=== PATIENT | female | born 1975 | race Caucasian/White ===

== ENCOUNTER 2021-07-14 14:06 | Outpatient (CLI) | payer MEDICAID, SELFPAY ==
--- NOTE | 2021-07-14 14:17 | MM_ITS ---
WS: [id number] BILATERAL DIGITAL SCREENING MAMMOGRAPHY WITH CAD CLINICAL INFORMATION: SCREENING HISTORY: Screening mammogram. No current complaints. COMPARISON: None. TECHNIQUE: Bilateral CC and MLO views. FINDINGS: The breasts are composed of heterogeneous fibroglandular density tissue, which can limit the detectio n of small underlying mass lesions. No suspicious mass, asymmetry, calcifications, or architectural d istortion. No evidence of malignancy. MM/[place] [id number] IMPRESSION: BI-RADS: 1-Negative FOLLOW UP: 1 Year Follow-up Recommend return to annual screening mammography.
== END 2021-07-14 14:07 | disposition home or self-care (01) ==
LOC: RADSHAW 14:12
PROVIDERS: Family Provider Family Medicine; PCP Family Medicine; Visit Provider Physician Assistant
DX: Z12.31 Encounter for screening mammogram for malignant neoplasm of breast (principal)
CPT/HCPCS: 77067

== ENCOUNTER 2022-08-09 14:58 | Outpatient (CLI) | payer MEDICAID, SELFPAY ==
--- NOTE | 2022-08-09 15:07 | MM_ITS ---
WS: [id number] Bilateral screening 3D tomosynthesis digital mammogram, 08/09/2022 Clinical Data: SCREENING Comparison: 07/14/2021 Findings: The breast parenchymal pattern shows heterogeneous density. No spiculated masses or clustered calcifi cations are seen. There are no secondary signs of carcinoma. MM/[place] [id number] Impression: 1. Negative bilateral mammogram unchanged. 2. Recommend annual screening mammograms. BIRADS: 1-Negative FOLLOW UP: 1 Year Follow-up The CAD construction checker was used.
== END 2022-08-09 14:59 | disposition home or self-care (01) ==
PROVIDERS: PCP Physician Assistant; Visit Provider Physician Assistant
DX: Z12.31 Encounter for screening mammogram for malignant neoplasm of breast (principal)
CPT/HCPCS: 77063; 77067

== ENCOUNTER 2025-02-26 15:13 | Outpatient (CLI) | payer OTHER, SELFPAY ==
--- NOTE | 2025-02-26 15:19 | MM_ITS ---
WS: [id number] BILATERAL 3D TOMOSYNTHESIS DIGITAL SCREENING MAMMOGRAPHY WITH CAD CLINICAL INFORMATION: ANNUAL SCREEN HISTORY: Screening mammogram. No current complaints. COMPARISON: 2022 TECHNIQUE: Bilateral CC and MLO views. FINDINGS: The breasts are composed of heterogeneous fibroglandular density tissue, which can limit the detection of small underlying mass lesions. Slightly spiculated small asymmetric density outer RIGHT breast posterior depth measuring 4 mm near the 9 o'clock position. Recommend further evaluation with RIGHT breast diagnostic mammography and ultrasound if persistent. LEFT breast is unremarkable MM/MM [facility] tomosynthesis [id number] IMPRESSION: DENSITY: The breasts are heterogeneously dense, which may obscure small masses. BI-RADS: 0 - Incomplete: Need additional imaging evaluation FOLLOW UP: Need Additional Imaging Recommend further evaluation with RIGHT breast diagnostic mammography and ultra sound if persistent.
== END 2025-02-26 15:14 | disposition home or self-care (01) ==
LOC: RAD 15:14
PROVIDERS: PCP Physician Assistant; Visit Provider Advanced Practice Midwife
DX: Z12.31 Encounter for screening mammogram for malignant neoplasm of breast (principal); R92.333 Mammographic heterogeneous density, bilateral breasts; R92.323 Mammographic fibroglandular density, bilateral breasts; N64.89 Other specified disorders of breast
CPT/HCPCS: 77063; 77067

== ENCOUNTER 2025-03-18 14:33 | Outpatient (CLI) | payer OTHER, SELFPAY ==
--- NOTE | 2025-03-18 14:57 | MM_ITS ---
WS: [id number] RIGHT 3D TOMOSYNTHESIS DIGITAL MAMMOGRAPHY WITH CAD CLINICAL INFORMATION: ABNORMAL MAMMO HISTORY: Additional views COMPARISON: 2024 TECHNIQUE: 3 views of the right breast were obtained. FINDINGS: The right breast is composed of heterogeneous fibroglandular density tissue, which can limit the detection of small underlying mass lesions. Previously described slightly spiculated small asymmetric density outer RIGHT breast is less distinct today on the spot compression views. Ultrasound described below. ULTRASOUND BREAST RIGHT TECHNIQUE: Ultrasound right breast focused area of concern. CLINICAL INFORMATION: ABNORMAL MAMMO FINDINGS: Ultrasound RIGHT breast at the 9 o'clock position. Dense underlying parenchymal tissue. Tiny incidental cyst measuring 7 mm 9 o'clock position 2 cm from the nipple. Area of dense parenchymal tissue with fibrocystic change. No suspicious abnormalities to target for biopsy. Recommend return to annual screening mammography . MM/MM diag RT tomosynthesis [id number] IMPRESSION: DENSITY: The breasts are heterogeneously dense, which may obscure small masses. BI-RADS: 2 - Benign FOLLOW UP: 1 Year Follow-up Recommend return to annual screening mammography.
== END 2025-03-18 14:34 | disposition home or self-care (01) ==
LOC: RAD 14:36
PROVIDERS: PCP Physician Assistant; Visit Provider Advanced Practice Midwife
DX: Z12.31 Encounter for screening mammogram for malignant neoplasm of breast (principal); R92.333 Mammographic heterogeneous density, bilateral breasts; R92.8 Other abnormal and inconclusive findings on diagnostic imaging of breast
CPT/HCPCS: 76642; 77061; G0279

== ENCOUNTER 2025-05-24 06:45 | Emergency (ER) | payer SELFPAY ==
--- OUTSIDE RECORDS SUMMARY | 2025-05-24 06:50 | XMS_ITS | Data Portability ---
Author Organization [place] [facility] Faith Powers [facility] Address [address] [address] Assessment No assessment recorded. Plan of Treatment Reminders Order Date Submit Date Provider Last Modified By Organization Details Last Modified Time Details Appointments None recorded. Lab lipid panel, blood 2023 024 [email or web address] 1 [facility], [address] [place] [address], [address] [place], [address], 4 08:32:55 CMP, serum or plasma 2023 024 [email or web address] 1 [facility], [address], [address], 4 08:32:54 CBC [address] [facility], [address], [address], 4 09:16:13 TSH, serum or plasma 2023 024 ZENAIDA [facility], [address] [place] [address], [address] [place], [address], 4 13:19:55 T4, free, serum 2023 024 [email or web address] 1 [facility], [address] [place] [address], [address] C, [place], [address], 4 09:16:13 Referral general surgeon referral 2023 024 [email or web address] 2 Not available 4 16:35:59 Procedures None recorded. Surgeries None recorded. Imaging None recorded. Medication Orders azithromyci n 250 mg tablet 2023 024 ZENAIDA Not available 4 12:31:19 norgestimat e 0.25 mg-ethinyl estradiol 0.035 mg tablet 2023 024 ZENAIDA Not available 4 16:21:53 Toviaz 4 mg tablet,exte nded release 2023 024 ZENAIDA Not available 16:21:54 Patient TargetsNo targets recorded. Patient InstructionsNo instructions recorded. Reason for Referral General Surgeon Referral for Screening colonoscopy Referring Physician: Dayna Lawson, Family Medicine, Encounter Date: 07/17/2023 Results Created Date Observation Date Name Description Value Unit Range Abnormal Flag Note LastModifiedBy Organization Detail LastModifiedTime 01/29/20 24 01/29/2024 CBC WBC 7.6 x10 4.0-10 .5 Not Available [facility] [address] [facility] 1, [place], [address], 01/29/2024 09:20:40 01/29/20 24 01/29/2024 CBC RBC 4.60 x10 3.50-5 .50 Not Available [facility] [address] [facility] [address], [place], [address], 01/29/2024 09:20:40 01/29/20 24 01/29/2024 CBC HGB 12.5 g/dL 12.0-1 6.0 Not Available [facility] [address] [facility] [address], [place], [address], 01/29/2024 09:20:40 01/29/20 24 01/29/2024 CBC HCT 37.4 % 37.0-4 7.0 Not Available [facility] [address] [facility] 1, [place], [address], 01/29/2024 09:20:40 01/29/20 24 01/29/2024 CBC MCV 81.4 fL 80.0-9 9.9 Not Available [facility] [address] [facility] 1, [place], [address], 01/29/2024 09:20:40 01/29/20 24 01/29/2024 CBC MCH 27.1 pg 27.0-3 2.0 Not Available [facility] [address] [facility] 1, [place], [address], 01/29/2024 09:20:40 01/29/2001/29/2024 CBC MCHC 33.3 g/dL 32.0-3 6.0 Not Available [facility] [address] [facility] 1, [place], [address], 01/29/2024 09:20:40 01/29/2001/29/2024 CBC RDW 15.0 % 11.5-1 4.5 high Not Available [facility] [address] [facility] 1, [place], [address], 01/29/2024 09:20:40 01/29/2001/29/2024 CBC plt 241.4 x10 140.0- 451.0 Not Available [facility] [address] [facility] 1, [place], [address], 01/29/2024 09:20:40 01/29/20 24 01/29/2024 CBC lymphocytes % 24.2 % 20.0-5 0.0 Not Available [facility] [address] [facility] 1, [place], [address], 01/29/2024 09:20:40 01/29/20 24 01/29/2024 CBC granulcytes % 64.5 % 30.0-7 0.0 Not Available [facility] [address] [facility] 1, [place], [address], 01/29/2024 09:20:40 01/29/20 24 01/29/2024 CBC monocytes % 7.1 % 2.0-16 .0 Not Available [facility] [address] [facility], [place], [address], 01/29/2024 09:20:40 01/29/20 24 01/29/2024 CBC granulcytes# 4.9 x10 Not Trinidad ilable [facility] [address] [facility] 1, [place], [address], 01/29/2024 09:20:40 01/29/20 24 01/29/2024 CBC lymphocytes # 1.9 x10 Not Available [facility] [address] [address], [place], [address], 01/29/2024 09:20:40 01/29/20 24 01/29/2024 CBC monocytes # 0.5 x10 Not Avai lable [facility] [address] [address], [place], [address], 01/29/2024 09:20:40 01/29/20 24 01/30/2024 LIPID PANEL , STAND KIMBERLY cholesterol, total 192 mg/dL <200 normal Not Available [facility] [address] [place], [address], 01/30/2024 13:19:54 01/29/20 24 01/30/2024 LIPID PANEL , STAND KIMBERLY HDL cholesterol 61 mg/dL > or = 50 normal Not Available [facility] [address] [place], [address], 01/30/2024 13:19:54 01/29/20 24 01/30/2024 LIPID PANEL , STAND KIMBERLY triglyceride s 156 mg/dL <150 high Not Available [address], [address], 01/30/2024 13:19:54 01/29/20 24 01/30/2024 LIPID PANEL , STAND KIMBERLY LDL-choleste rol 104 mg/dL _(jayce c) high Refer ence range : <100 Marky able range <100 mg/dL for prima ry preve ntion ; <70 mg/dL for patie nts with CHD or diabe tic patie nts with > or = 2 CHD risk facto rs. LDL-C is now calcu lated using the Sarah n-Hop kins calcu latcalvin n, which is a valid ated novel metho d provi ding danny r accur acy than the Fried misty equat ion in the estim ation of LDL-C . Sarah frazier SS et al. NAM. 2013; 310(1 9): 2061- 2068 (http ://ed ucati on.Qu linusCivitas Learning. com/f aq/FA Q164) Not Available [address], [address], 01/30/2024 13:19:54 01/29/20 24 01/30/2024 LIPID PANEL , STAND KIMBERLY chol/HDLC ratio 3.1 (calc ) <5.0 normal Not Available [address], [address], 01/30/2024 13:19:54 01/29/20 24 01/30/2024 LIPID PANEL , STAND KIMBERLY non HDL cholesterol 131 mg/dL _(jayce c) <130 high For patie nts with diabe luci plus 1 major ASCVD risk facto r, treat ing to a non-H DL-C goal of <100 mg/dL (LDL- C of <70 mg/dL ) is consi dered a thera peuti c optio n. Not Available [facility] [id number] [place] [address] [place], [address], 01/30/2024 13:19:54 01/29/20 24 01/30/2024 COMPR EHENS JOSE METAB OLIC PANEL glucose 96 mg/dL 65-99 normal Fasti ng refer ence inter dennis Not Available [address], [address], 01/30/2024 13:19:54 01/29/20 24 01/30/2024 COMPR EHENS JOSE METAB OLIC PANEL urea nitrogen (BUN) 5 mg/dL 7-25 low Not Available [address], [address], 01/30/2024 13:19:54 01/29/20 24 01/30/2024 COMPR EHENS JOSE METAB OLIC PANEL creatinine 0.75 mg/dL 0.50-0 .99 normal Not Available [address], [address], 01/30/2024 13:19:54 01/29/20 24 01/30/2024 COMPR EHENS JOSE METAB OLIC PANEL eGFR 99 mL/mi n/1.7 3m2 > or = 60 normal Not Available [address], [address], 01/30/2024 13:19:54 01/29/20 24 01/30/2024 COMPR EHENS JOSE METAB OLIC PANEL BUN/creatini ne ratio 7 (calc ) 6-22 normal Not Available [address], [address], 01/30/2024 13:19:54 01/29/20 24 01/30/2024 COMPR EHENS JOSE METAB OLIC PANEL sodium 139 mmol/ L 135-14 6 normal Not Available [address], [address], 01/30/2024 13:19:54 01/29/20 24 01/30/2024 COMPR EHENS JOSE METAB OLIC PANEL potassium 4.4 mmol/ L 3.5-5. 3 normal Not Available [address], [address], 01/30/2024 13:19:54 01/29/20 24 01/30/2024 COMPR EHENS JOSE METAB OLIC PANEL chloride 100 mmol/ L 98-110 normal Not Available [address], [address], 01/30/2024 13:19:54 01/29/20 24 01/30/2024 COMPR EHENS JOSE METAB OLIC PANEL carbon dioxide 31 mmol/ L 20-32 normal Not Available [address], [address], 01/30/2024 13:19:54 01/29/20 24 01/30/2024 COMPR EHENS JOSE METAB OLIC PANEL calcium 9.3 mg/dL 8.6-10 .2 normal Not Available [address], [address], 01/30/2024 13:19:54 01/29/20 24 01/30/2024 COMPR EHENS JOSE METAB OLIC PANEL protein, total 7.4 g/dL 6.1-8. 1 normal Not Available [address], [address], 01/30/2024 13:19:54 01/29/20 24 01/30/2024 COMPR EHENS JOSE METAB OLIC PANEL albumin 3.9 g/dL 3.6-5. 1 normal Not Available [address], [address], 01/30/2024 13:19:54 01/29/20 24 01/30/2024 COMPR EHENS JOSE METAB OLIC PANEL globulin 3.5 g/dL_ (calc ) 1.9-3. 7 normal Not Available [facility] [address], [address], 01/30/2024 13:19:54 01/29/20 24 01/30/2024 COMPR EHENS JOSE METAB OLIC PANEL albumin/glob ulin ratio 1.1 (calc ) 1.0-2. 5 normal Not Available [address], [address], 01/30/2024 13:19:54 01/29/20 24 01/30/2024 COMPR EHENS JOSE METAB OLIC PANEL bilirubin, total 0.3 mg/dL 0.2-1. 2 normal Not Available [address], [address], 01/30/2024 13:19:54 01/29/20 24 01/30/2024 COMPR EHENS JOSE METAB OLIC PANEL alkaline phosphatase 98 U/L 31-125 normal Not Available [address], [address], 01/30/2024 13:19:54 01/29/20 24 01/30/2024 COMPR EHENS JOSE METAB OLIC PANEL AST 15 U/L 10-35 normal Not Available [address], [address], 01/30/2024 13:19:54 01/29/20 24 01/30/2024 COMPR EHENS JOSE METAB OLIC PANEL ALT 15 U/L 6-29 normal Not Available [address], [address], 01/30/2024 13:19:54 01/29/20 24 01/30/2024 T4, FREE T4, free 1.2 NG/dL 0.8-1. 8 normal Not Available [address], [address], 01/30/2024 13:19:55 01/29/20 24 01/30/2024 TSH TSH 2.46 mIU/L normal Refer ence Range > or = 20 Years 0.40- 4.50 Pregn danyell Range s First trime ster 0.26- 2.66 Secon d trime ster 0.55- 2.73 Third trime ster 0.43- 2.91 Not Available [facility] [address] [address], [place], [address], 01/30/2024 13:19:55 Result Notes None recorded. Problems Name Problem SNOMED Code Status Onset Date Resolution Date Notes Provider Name and Address Organization Details Recorded Time Polycystic ovary syndrome 542620865 Active 2022 PCOS (POLYCYST IC OVARIAN SYNDROME) ; Recorded 3 2:41PM by Dayna Lawson PA-C, Office Visit; Promoted; acuity set as *; Not Available [facility] 3 03:10:31 Backache 423089630 Active 2022 BACK PAIN; Recorded 3 8:57AM by Dilia Melton LPN, Office Visit; Promoted; acuity set as *; Not Available [facility] 3 03:10:32 Depressive disorder 87234510 Active 2022 DEPRESSIO N; Recorded 3 2:44PM by Dayna Laswon PA-C, Office Visit; Promoted; acuity set as *; Not Available [facility] 3 03:10:32 Problem Notes None recorded. Procedures Surgical History Date Name Laterality Status Provider Name and Address Organization Details Recorded Time 3 Most Recent Mammogram completed DAYNA LAWSON PA-C [address] [place], [address], [facility] 07/17/2023 16:10:24 2 Date of Last Pap Smear completed DAYNA LAWSON PA-C [address] [place], [address], [facility] 07/17/2023 16:06:18 Imaging Results None recorded. Procedure Notes None recorded. Medical Equipment None Reported. Medications Name Sig Start Date Stop Date Status Note LastModified by Organization Details LastModified Time metformin 500 mg tablet TAKE 1 TABLET BY MOUTH AT BEDTIME active Not Available Not Available No t Available azithromy amna 250 mg tablet TAKE TWO TABLETS BY MOUTH ONCE DAILY FOR ONE DAY THEN ONE TABLET BY MOUTH ONCE DAILY FOR FOUR DAYS 12/31 completed Not Available Not Available Not Available trazodone 150 mg tablet TAKE ONE TABLET BY MOUTH Every night AT BEDTIME active Not Available Not Available No t Available fluoxetin e 20 mg capsule TAKE THREE CAPSULES BY MOUTH EVERY DAY active Not Available Not Available No t Available aripipraz ole 10 mg tablet TAKE ONE TABLET BY MOUTH EVERY DAY active Not Available Not Available No t Available buprenorp daysi 8 mg-naloxo ne 2 mg sublingua l tablet dissolve ONE-HALF tablet UNDER THE TONGUE THREE TIMES DAILY active Not Available Not Available No t Available Trazodone at bedtime 07/17 completed vo KM/dh; [id number]; Recorded 08/04/19 23 4:36PM by Dilia Melton LPN (Authori michelet through Dayna Lawson PA-C), Refill Request; Refill Quantity : 30; Tablet; Not Available Not Available Not Available FeroSul 325 mg (65 mg iron) tablet TAKE ONE TABLET BY MOUTH EVERY DAY active Not Available Not Available No t Available fesoterod ine ER 4 mg tablet,ex tended release 24 hr TAKE 1 TABLET BY MOUTH EVERY DAY active Not Available Not Available No t Available buprenorp daysi 8 mg-naloxo ne 2 mg sublingua l film place ONE-HALF film UNDER THE TONGUE THREE TIMES DAILY 03/06 completed Not Available Not Available Not Available fluoxetin e 60 mg tablet TAKE ONE CAPSULE BY MOUTH EVERY DAY 03/06 completed Not Available Not Available Not Available [place] [facility] daily 07/17 completed vo KM/dh; Recorded 06/20/19 23 3:34PM by Dilia Melton LPN, Office Visit; Refill Quantity : 1; Packet; Not Available Not Available Not Available VyLibra 0.25 mg-0.035 mg tablet TAKE 1 TABLET BY MOUTH EVERY DAY *need TO see doctor* 2024 active PT MUST SEE PCP FOR MORE KM/DH Not Available Not Available Not Available Vitals Date Recorded Body height Body mass index (BMI) Body weight Heart rate Respiratory rate Body temperature Systolic And Diastolic Provider Name and Address Organization Details Last Updated DateTime 4 160.02 cm 34.7 kg/m2 21867.1 g 78 /min 20 /min 98.6 [degF] 140/90 mm[Hg] DILIA MELTON [facility] 4 15:29:57 Social History None recorded. Functional Status None recorded. Mental Status None recorded. Family History Nothing Reported. Medical History No medical history recorded. Gynecological History Statement/Question Response Abnormal Pap N Date of Last Pap Smear 2022 Most Recent Mammogram 08/06/2022 Obstetrics History GPAL:G 0 P 0 0 0 0 Immunizations Vaccine Type Date Status Note Provider Nam e and Address Organization Details Recorded Time Influenza, split virus, trivalent, preservative 5 completed Not Available [facility] 12/29/2022 02:27:50 tetanus toxoid, unspecified formulation 5 completed Not Available [facility] 12/29/2022 02:27:50 Past Encounters Encounter ID Performer Location Encounter Start Date Encounter Closed Date Diagnosis/Indication Diagnosis SNOMED-CT Code Diagnosis ICD10 Code Diagnosis IMO Codes Diagnosis Note [id number] DAYNA LAWSON PA-C [facility] [address] [place] [address] 07/17/2023 15:13:46 07/24/2023 07:11:59 Mixed anxiety and depressive disorder 120606422 F41.8 Dr. Junior thru [place] Uses oral contraception 4842453 Z79.3 Cholesterol screening 27 4518174 Z13.220 Screening colonoscopy 44 8959806 Z12.11 Dad with colon ca at age 68 Polycystic ovary syndrome 707024792 E28.2 Acute sinusitis 49211720 J01.90 Health Concerns Section Related Observation LastModified by Organization Detai ls LastModified Time None Recorded Concern Status LastModified by Organization Details LastModified Time None Recorded Advance Directives Directive None Recorded Payers Insurance Date Sequence Insurance Name Policy Number Policy [place] Covered Member ID [place] Member ID Guarantor Name 02/09/2025 1 [place] Christi M Rupert [id number] Christi Emery 01/29/[address] [facility] (MEDICAID HMO) Christi Emery [id number] Christi Emery 01/29/2024 [facility] (MEDICAID HMO) Christi Emery [id number] Christi Emery Notes Date Note Type Note Provider Name and Address Organization Details Recorded Time 07/17/19 24 text/htm l CoughReported by PatientHPIFor severity, patient reportsworseningandpain with coughbut reportsmoderate. For associated symptoms, patient reportssputum productionandshortness of breath. For quality, patient reportsproductive. For duration, patient reportsconstantandchronic (>8 weeks). For onset/timing, patient reportsgradualandbecomes better throughout the day. For context, patient reportsworse at night. IncontinenceReported by PatientHPIFor associated symptoms, patient reportsstress incontinence. For quality, patient reportsstress incontinence. For severity, patient reportsmoderate. For duration, patient reportsconstant. For timing, patient reportschronic. For context, patient reportsdepression. I need refills on my Toviaz and control DAYNA LAWSON PA-C [address] [place] [address], [address], [facility], Michel. 07/23/2023 18:00:48 OBGyn Episode No OBEpisode recorded.
[2025-05-24 07:05] VITALS: BP 162/82; PULSE 73; RESP 16; TEMP 36.7; O2SAT 95; BMI 32.5
--- NOTE | 2025-05-24 07:08 | W.ED.EYEPROB ---
HPI - Eye Problem General: Chief complaint: Eye Problems Stated complaint: bilat eye swelling, redness Time Seen by Provider: 05/24/25 07:06 History of Present Illness: 50-year-old female with history of depression and diabetes who presents emergency room for eye redness and pruritus. She said this started yesterday. [id number] eyedrops helped briefly but have stopped working. She has had some drainage and blurred vision but no pain. Related Data Home Medications ?Medication ?Instructions ?Recorded ?Confirmed aripiprazole 15 mg tablet (Abilify) 15 mg PO DAILY 03/07/21 08/21/23 buprenorphine 12 mg-naloxone 3 mg 1 film buccal Q24H 03/07/21 08/21/23 sublingual film (Suboxone) fluoxetine 40 mg capsule 40 mg PO DAILY 03/07/21 08/21/23 tolterodine 4 mg capsule,extended 4 mg PO DAILY 03/07/21 08/21/23 release 24 hr (Detrol LA) trazodone 150 mg tablet 150 mg PO DAILY 03/07/21 08/21/23 metformin 500 mg tablet 500 mg PO DAILY 08/21/23 08/21/23 Previous Rx's ?Medication ?Instructions ?Recorded doxycycline hyclate 100 mg tablet 100 mg PO BID 7 days #14 tabs 03/07/21 polymyxin B sulfate 10,000 1 drp ophthalmic (eye) Q3H 7 days 05/24/25 unit-trimethoprim 1 mg/mL eye drops #10 mL Allergies Allergy/AdvReac Type Severity Reaction Status Date / Time No Known Allergies Allergy Verified 08/21/23 11:08 Review of Systems Narrative: Constitutional symptoms: Negative except as documented in HPI. Skin symptoms: Negative except as documented in HPI. Eye symptoms: Negative except as documented in HPI. ENMT symptoms: Negative except as documented in HPI. Respiratory symptoms: Negative except as documented in HPI. Cardiovascular symptoms: Negative except as documented in HPI. Gastrointestinal symptoms: Negative except as documented in HPI. Genitourinary symptoms: Negative except as documented in HPI. Musculoskeletal symptoms: Negative except as documented in HPI. Neurologic symptoms: Negative except as documented in HPI. Psychiatric symptoms: Negative except as documented in HPI. Endocrine symptoms: Negative except as documented in HPI. PFSH ED PFSH: Social History Smoking and tobacco/nicotine status: never used tobacco/nicotine Physical Exam Narrative: EXAM NARRATIVE: General: Alert, no acute distress. Skin: Warm, dry. Head: Normocephalic, atraumatic. Neck: Supple, trachea midline. Eye: Extraocular movements are intact. Ears, nose, mouth and throat: mucosa moist. Cardiovascular: Regular, Normal peripheral perfusion. Respiratory: Lungs are clear to auscultation, respirations are non-labored, breath sounds are equal, Symmetrical chest wall expansion. Gastrointestinal: Soft, Nontender, Non distended Musculoskeletal: Normal ROM, no deformity. Neurological: Alert and oriented, No focal neurological deficit observed. Psychiatric: Cooperative, appropriate mood & affect. Course Vital Signs: Vital signs: Vital Signs Temperature 98.1 F 05/24/25 07:05 Pulse Rate 73 05/24/25 07:05 Respiratory Rate 16 05/24/25 07:05 Blood Pressure 162/82 05/24/25 07:05 Pulse Oximetry 95 05/24/25 07:05 Oxygen Delivery Me thod Room Air 05/24/25 07:05 MDM - Eye Problem Medical Decision Making Medical decision making Patient's reason for coming to the emergency room: Eye redness and itching Social determinants: Patient is employed but she tells me she does not have medical insurance I reviewed the patient's medical record. Patient had an office visit to general surgery for considering a colonoscopy in 2023 I reviewed the patient's current home meds Records report patient has been on metformin Alternate historians: None Differential diagnosis: including but not limited to and based on the above HPI, review of systems and physical exam: Patient appears to have a conjunctivitis. This could be bacterial, viral or chemical. Assessment and plan: Conjunctivitis - Discharged home - Discussed plan with patient. Answered any questions. - Evaluation and treatment of this problem were appropriate in the emergency setting. No radiology studies performed this visit Discharge Plan Discharge Patient Disposition: Home Clinical Impression: Conjunctivitis Condition: Stable Prescriptions: New polymyxin B sulf-trimethoprim 10,000 unit- 1 mg/mL drops 1 drp ophthalmic (eye) Q3H 7 Days Qty: 10 0RF Rx Instructions: while awake; do not exceed 6 doses in 24 hours No Action trazodone 150 mg tablet 150 mg PO DAILY tolterodine [Detrol LA] 4 mg capsule,extended release 24hr 4 mg PO DAILY buprenorphine-naloxone [Suboxone] 12-3 mg film 1 film buccal Q24H aripiprazole [Abilify] 15 mg tablet 15 mg PO DAILY fluoxetine 40 mg capsule 40 mg PO DAILY doxycycline hyclate 100 mg tablet 100 mg PO BID 7 Days Qty: 14 0RF metformin 500 mg tablet 500 mg PO DAILY Discharge Orders: Discharge ED (Routine); Ordered 05/24/25 Ordered By: Clemencia Martinez Referrals: Dayan Lozano PA [Primary Care Provider, [facility] [employer] [facility]] Discharge Diet: Usual diet Discharge Activity: Increase activity as tolerated Patient Instructions: Conjunctivitis (ED), Opioid Safety, Pain Management, Patient Portal & [facility] Instructions Activity Restrictions/Additional Instructions: Thank you for choosing [facility] for your healthcare needs today. You have been screened and evaluated and felt safe for discharge. Health conditions do change or evolve sometimes and as such it is important that you follow up with your Primary Doctor to be re checked, 3-5 days is a general good time frame for follow up. You are always welcome to return to the ED for re assessment if your symptoms are worsening or you have new concerns. (Please note that included in your discharge packet is information concerning opioid safety and pain management. This information is given to all patients who are discharged from the ER regardless of their discharge diagnosis or the medicines they usually take or are prescribed.) Print Language: [place] Coding Level of Care Code ED [employer] Worker for Mayr Dennison
== END 2025-05-24 07:20 | disposition home or self-care (01) ==
PROVIDERS: Emergency Provider Emergency Medicine; PCP Physician Assistant
DX: H10.9 Unspecified conjunctivitis (principal); Z79.84 Long term (current) use of oral hypoglycemic drugs
CPT/HCPCS: 99283